=== PATIENT | male | born 1990 | race Caucasian/White ===

== ENCOUNTER 2024-06-12 00:41 | Emergency (ER) | payer MEDICAID ==
[~2024-06-12] VITALS: Ht 175.3 cm; Wt 91.0 kg
[2024-06-12 01:27] VITALS: O2SAT 99
[2024-06-12 01:52] LABS: BASOPHILS % 0.6 % (0.0-2.0); EOSINOPHILS % 5.7 % (0.0-5.0); HEMATOCRIT. 41.9 % (42.0-52.0); HEMOGLOBIN. 14.5 g/dL (14.0-18.0); LYMPHOCYTES % 19.9 % (20.0-50.0); MEAN CORPUSCULAR HEMOGLOBIN 29.7 pg (28.0-32.0); MEAN CORPUSCULAR HGB CONC 34.7 g/dL (31.0-37.0); MEAN CORPUSCULAR VOLUME 85.5 fL (80.0-94.0); MONOCYTES % 6.9 % (2.0-8.0); NEUTROPHILS % 66.9 % (40.0-76.0); PLATELET 417 x1000/uL (130-400); RED CELL DISTRIBUTION WIDTH 13.8 % (11.6-14.6)
[2024-06-12 01:57] LABS: CHLORIDE 104 mEq/L (98-107); POTASSIUM 3.6 mEq/L (3.5-5.1); SODIUM 139 mEq/L (136-145)
[2024-06-12 01:58] LABS: CARBON DIOXIDE 31 mEq/L (21-32)
[2024-06-12 01:59] LABS: CALCIUM 8.9 mg/dL (8.7-10.4)
[2024-06-12 02:03] LABS: CREATININE 0.8 mg/dL (0.6-1.3); GLUCOSE 106 mg/dL (70-105); UREA NITROGEN BLOOD 7 mg/dL (9-23)
[2024-06-12 02:05] LABS: TROPONIN I HIGH SENSITIVITY < 4 ng/L (3.0-53)
[2024-06-12] MEDS ORDERED: ALBU90AE INH (02:23)
[2024-06-12] MEDS ORDERED: BENZ100C86 MT (02:23)
[2024-06-12] MEDS ORDERED: AMOX-494 MT (02:23)
[2024-06-12 03:07] VITALS: BP 132/87; PULSE 83; RESP 18; TEMP 37.16964; O2SAT 99
[2024-06-13] MEDS ORDERED: NALO4SPR BOTHNSTRLS (19:30)
== END 2024-06-12 03:09 | disposition home or self-care (01) ==
LOC: ER 00:41
DX: J45.909 Unspecified asthma, uncomplicated (principal); Z90.49 Acquired absence of other specified parts of digestive tract
CPT/HCPCS: 36415; 71045; 80048; 84484; 85025; 93005; 99285

== ENCOUNTER 2024-06-13 18:28 | Emergency (ER) | payer MEDICAID ==
[~2024-06-13] VITALS: Ht 172.7 cm; Wt 90.0 kg
[~2024-06-13 18:28] MED LIST: ALBU90AE INH; AMOX-494 MT; BENZ100C86 MT
[2024-06-13 18:35] VITALS: BP 140/86; PULSE 109; RESP 20; TEMP 98.4; O2SAT 96
[2024-06-13] MEDS ORDERED: NALO4SPR BOTHNSTRLS (19:30)
[2024-06-13 20:45] LABS: HEMATOCRIT. 43.5 % (42.0-52.0); HEMOGLOBIN. 14.4 g/dL (14.0-18.0); MEAN CORPUSCULAR HEMOGLOBIN 28.8 pg (28.0-32.0); MEAN CORPUSCULAR VOLUME 87.1 fL (80.0-94.0); MEAN PLATELET VOLUME 7.2 fl (7.4-10.4); PLATELET 406 x1000/uL (130-400); RED CELL DISTRIBUTION WIDTH 13.9 % (11.6-14.6); WHITE BLOOD COUNT 16.4 x1000/uL (4.5-11.0)
[2024-06-13 20:46] LABS: CHLORIDE 104 mEq/L (98-107); POTASSIUM 4.1 mEq/L (3.5-5.1); SODIUM 141 mEq/L (136-145)
[2024-06-13 20:47] LABS: CALCIUM 8.9 mg/dL (8.7-10.4); CARBON DIOXIDE 34 mEq/L (21-32)
[2024-06-13 20:52] LABS: GLUCOSE 97 mg/dL (70-105); UREA NITROGEN BLOOD 9 mg/dL (9-23)
[2024-06-13 20:53] LABS: DIFFERENTIAL COMMENT 1
[2024-06-13 20:55] LABS: ETHANOL BLOOD < 10 mg/dL (<10)
[2024-06-14 11:17] LABS: PLATELET ESTIMATE SLIGHTLY INCREASED
== END 2024-06-13 22:58 | disposition home or self-care (01) ==
LOC: ER 18:28
DX: T40.601A Poisoning by unspecified narcotics, accidental (unintentional), initial encounter (principal); Z90.49 Acquired absence of other specified parts of digestive tract; Z79.899 Other long term (current) drug therapy; X58.XXXA Exposure to other specified factors, initial encounter
CPT/HCPCS: 36415; 80048; 80320; 85025; 99283; G0480